=== PATIENT | female | born 1955 | race Caucasian/White ===

== ENCOUNTER → 2020-02-19 | Outpatient (CLI) | payer OTHER | END | disposition home or self-care (01) | LOC: LABWHC1 07:28 | PROVIDERS: ATTEND Internal Medicine | DX: R05 Cough (principal); R50.9 Fever, unspecified ==

== ENCOUNTER 2020-09-19 10:35 | Observation (INO) | payer MEDICARE, OTHER ==
--- NOTE | 2020-09-19 11:12 | ED ---
Chest Pain HPI - General Chief Complaint: Chest Pain Stated Complaint: Chest Pain Time Seen by Provider: 09/19/20 10:35 Source: patient, EMS, RN notes reviewed Mode of arrival: EMS Limitations: no limitations - History of Present Illness Initial Comments: this is a 65-year-old female with a history of COPD and a prior history about 20 years ago. Cardiac cath showing no obstruction who presents with complaints of the onset of chest pain around 7:30 this morning. [place] dizzy and sweaty and nauseated. It was central pain dull pain pressure-like. Increase with deep breathing EMS was called she was given aspirin and 2 nitroglycerin with resolution of the pain. No complaints at this time. She was brought in from home. MD Complaint: chest pain - Related Data Home Medications Medication Instructions Recorded Confirmed Lisinopril-Hctz 10-12.5 mg 1 tab PO DAILY 09/19/20 09/19/20 [Zestoretic 10-12.5] Melatonin 3 mg PO HS 09/19/20 09/19/20 Allergies Allergy/AdvReac Type Severity Reaction Status Date / Time azithromycin Allergy Rash/Hives Verified 09/19/20 11:51 [From Zithromax Z-Benjie] meperidine [From Demerol] Allergy Rash/Hives Verified 09/19/20 11:51 morphine Allergy Hallucinati Verified 09/19/20 11:51 ons Penicillins Allergy Rash/Hives Verified 09/19/20 11:51 Review of Systems ROS Statement: Those systems with pertinent positive or pertinent negative responses have been documented in the HPI. ROS Other: All systems not noted in ROS Statement are negative. EKG Findings - EKG Results: EKG: interpreted by ARGELIA, sinus rhythm (Sinus rhythm was 95 SD interval 94, QRS 72 QT since QTC 312/[address]-T wave inferiorly and anterolaterally. No old ones for comparison) Past Medical History Past Medical History: COPD, Hypertension History of Any Multi-Drug Resistant Organisms: None Reported Past Surgical History: Section Past Psychological History: No Psychological Hx Reported Smoking Status: Current every day smoker Past Alcohol Use History: None Reported Past Drug Use History: None Reported General Exam - General Exam Comments Initial Comments: this is a well-developed asthenic appearing female who is awake alert oriented 3 Limitations: no limitations General appearance: alert, in no apparent distress Head exam: Present: atraumatic, normocephalic, normal inspection Eye exam: Present: normal appearance, PERRL, EOMI. Absent: scleral icterus, conjunctival injection, periorbital swelling ENT exam: Present: normal exam, mucous membranes moist Neck exam: Present: normal inspection, full ROM, other. Absent: tenderness, meningismus, lymphadenopathy Respiratory exam: Present: normal lung sounds bilaterally. Absent: respiratory distress, wheezes, rales, rhonchi, stridor, chest wall tenderness (no stridor to hear bruits) Cardiovascular Exam: Present: regular rate, normal rhythm, normal heart sounds. Absent: systolic murmur, diastolic murmur, rubs, gallop, clicks GI/Abdominal exam: Present: soft, normal bowel sounds. Absent: distended, tenderness, guarding, rebound, rigid Extremities exam: Present: normal inspection, full ROM, normal capillary refill. Absent: tenderness, pedal edema, joint swelling, calf tenderness Back exam: Present: normal inspection Neurological exam: Present: alert, oriented X3, CN II-XII intact Psychiatric exam: Present: normal affect, normal mood Skin exam: Present: warm, dry, intact, normal color. Absent: rash Course Vital Signs 09/19/20 09/19/20 10:37 12:18 Temperature 97.6 F Pulse Rate 94 94 Respiratory 22 20 Rate Blood Pressure 179/104 146/86 O2 Sat by Pulse 92 L 96 Oximetry Chest Pain MDM - MDM G reviewed evidence of COPD no other findings at this time. I did discuss findings with the patient family member the patient's from most part pain-free except when she takes a deep breath she did respond to nitro and aspirin earlier. She will be admitted for cardiology consultation. I did discuss the case with Dr. toledo Disposition Clinical Impression: Chest pain, Unstable angina pectoris Disposition: ADMITTED IP TO THIS HOSP Condition: Fair Referrals: Ana Knight MD [Primary Care Provider] - 1-2 days
[2020-09-19 11:14] LABS: Basophils # (A) 0.1 k/uL (0-0.2); Basophils % (A) 0 %; Eosinophils # (A) 0.2 k/uL (0-0.7); Eosinophils % (A) 1 %; HCT 42.8 % (34.0-46.0); Lymphocytes # (A) 1.4 k/uL (1.0-4.8); Lymphocytes % (A) 9 %; MCH 32.5 pg (25.0-35.0); MCHC 35.1 g/dL (31.0-37.0); MCV 92.6 fL (80.0-100.0); Mean Platelet Volume 7.1; Monocytes # (A) 0.4 k/uL (0-1.0); Monocytes % (A) 3 %; Neutrophils # (A) 12.8 k/uL (1.3-7.7); Neutrophils % (A) 86 %; Platelet Count 207 k/uL (150-450); RBC 4.63 m/uL (3.80-5.40); RDW 12.9 % (11.5-15.5); WBC 14.9 k/uL (3.8-10.6)
[2020-09-19 11:23] LABS: Prothrombin Time 10.3 sec (9.0-12.0)
[2020-09-19 11:31] LABS: ALT 23 U/L (4-34); AST 25 U/L (14-36); African American GFR (CKD) >90 (>60 ml/min/1.73 sqM); Albumin 4.4 g/dL (3.5-5.0); Alkaline Phosphatase 70 U/L (38-126); Anion Gap 9 mmol/L; Blood Urea Nitrogen 10 mg/dL (7-17); Calcium 9.5 mg/dL (8.4-10.2); Carbon Dioxide 25 mmol/L (22-30); Chloride 106 mmol/L (98-107); Creatine Kinase 46 U/L (30-135); Glucose 117 mg/dL (74-99); Magnesium 1.6 mg/dL (1.6-2.3); Non-African American GFR(CKD) 85 (>60 ml/min/1.73 sqM); Sodium 140 mmol/L (137-145); Total Bilirubin 0.6 mg/dL (0.2-1.3); Total Protein 8.2 g/dL (6.3-8.2)
--- NOTE | 2020-09-19 11:48 | XR ---
EXAMINATION TYPE: XR chest 2V DATE OF EXAM: 09/19/2020 COMPARISON: 09/14/2018 HISTORY: Shortness of breath TECHNIQUE: Frontal and lateral views of the chest are obtained. FINDINGS: Scattered senescent parenchymal changes noted. Hyperinflation compatible with COPD. No evidence for infiltrate. No evidence for atelectasis. Heart size is stable. Mediastinal structures are stable and grossly unremarkable. No evidence for hilar prominence. Degenerative changes dorsal spine. IMPRESSION: 1. No evidence for acute pulmonary disease.
[2020-09-19] MEDS ORDERED: HEPARIN SODIUM,PORCINE 5,000 UNIT/ML 1 ML VIAL IV ONE (13:00)
[2020-09-19] MEDS ORDERED: NITROGLYCERIN SL TABS 0.4 MG TAB SUBLINGUAL PRN (13:00)
[2020-09-19] MEDS ORDERED: NITROGLYCERIN OINT 1 INCH/GM PACKET TOPICAL STA (13:02)
[2020-09-19] MEDS: HEPARIN SOD,PORK IN 0.45% NACL 25,000 UNIT in 0.45% NACL 1 250ML.BAG IV SCH (13:20)
[2020-09-19] MEDS: SODIUM CHLORIDE 0.9% 1,000 ML IV SCH (13:23)
--- NOTE | 2020-09-19 15:15 | P.HPIM ---
History of Present Illness This is a pleasant 65 years old female with past medical history of COPD and hypertension. She is a patient of Dr. Knight. Presents because of chest pain. Patient states that she woke up this morning with chest pain which is 7-8/10 in severity that like heaviness, and the mid to lower chest, sometimes radiating to the next with no dyspnea but associated with dyspnea sweating and nausea. Currently her chest pain is rated at 3-4/10 and increase especially with deep breathing. She smokes about 1 pack per day, no alcohol or illicit drugs. Patient is counseled and she agrees to quit. She was nicotine patch Vital signs stable. unremarkable cbc, inr, bmp, liver enzymes except limited once complete 14 K In the emergency room patient was started on aspirin, heparin drip and normal saline at 100 mL per hour EKG showing normal sinus rhythm at [address] depression in V3 to V4 and T-wave inversion in the inferior leads Review of Systems CONSTITUTIONAL: No fever, no malaise, no fatigue. HEENT: No recent visual problems or hearing problems. Denied any sore throat. CARDIOVASCULAR: No orthopnea, PND, no palpitations, no syncope. PULMONARY: No shortness of breath, no cough, no hemoptysis. GASTROINTESTINAL: No diarrhea, no nausea, no vomiting, no abdominal pain. Normoactive bowel sounds. NEUROLOGICAL: No headaches, no weakness, no numbness. HEMATOLOGICAL: Denies any bleeding or petechiae. GENITOURINARY: Denies any burning micturition, frequency, or urgency. MUSCULOSKELETAL/RHEUMATOLOGICAL: Denies any joint pain, swelling, or any muscle pain. ENDOCRINE: Denies any polyuria or polydipsia. Past Medical History Past Medical History: COPD, Hypertension History of Any Multi-Drug Resistant Organisms: None Reported Past Surgical History: Section Past Psychological History: No Psychological Hx Reported Smoking Status: Current every day smoker Past Alcohol Use History: None Reported Past Drug Use History: None Reported Medications and Allergies Home Medications Medication Instructions Recorded Confirmed Type Lisinopril-Hctz 10-12.5 mg 1 tab PO DAILY 09/19/20 09/19/20 History [Zestoretic 10-12.5] Melatonin 3 mg PO HS 09/19/20 09/19/20 History Allergies Allergy/AdvReac Type Severity Reaction Status Date / Time azithromycin Allergy Rash/Hives Verified 09/19/20 11:51 [From Zithromax Z-Benjie] meperidine [From Demerol] Allergy Rash/Hives Verified 09/19/20 11:51 morphine Allergy Hallucinati Verified 09/19/20 11:51 ons Penicillins Allergy Rash/Hives Verified 09/19/20 11:51 Physical Exam Vitals: Vital Signs Temp Pulse Resp BP Pulse Ox 09/19/20 13:57 86 20 154/92 97 09/19/20 13:20 82 18 154/94 98 09/19/20 12:18 94 20 146/86 96 09/19/20 10:37 97.6 F 94 22 179/104 92 L Intake and Output 09/18/20 09/19/20 09/19/20 22:59 06:59 14:59 Other: Weight 45.813 kg GENERAL: The patient is alert and oriented x3, not in any acute distress. Well developed, well nourished. HEENT: Pupils are round and equally reacting to light. EOMI. No scleral icterus. No conjunctival pallor. Normocephalic, atraumatic. No pharyngeal erythema. No thyromegaly. CARDIOVASCULAR: S1 and S2 present. No murmurs, rubs, or gallops. PULMONARY: Chest is clear to auscultation, no wheezing or crackles. ABDOMEN: Soft, nontender, nondistended, normoactive bowel sounds. No palpable organomegaly. MUSCULOSKELETAL: No joint swelling or deformity. EXTREMITIES: No cyanosis, clubbing, or pedal edema. NEUROLOGICAL: Gross neurological examination did not reveal any focal deficits. SKIN: No rashes. No petechiae Results CBC & Chem 7: 09/19/20 11:01 09/19/20 11:01 Labs: Abnormal Lab Results - Last 24 Hours (Table) 09/19/20 09/19/20 Range/Units 11: 11:01 WBC 14.9 H (3.8-10.6) k/uL Neutrophils # 12.8 H (1.3-7.7) k/uL Glucose 117 H (74-99) mg/dL Assessment and Plan Assessment: Chest pain, Concerning for unstable angina Hypertension COPD not in acute exacerbation Nicotine dependence Plan: This is a pleasant 65 years old female who presents with chest pain. Concerning for unstable angina We'll do serial troponin, cardiology consult. Echocardiogram and continue with aspirin and heparin drip Labs and medication were reviewed.. Continue same treatment. Continue with symptomatic treatment. Resume home medication. Monitor lytes and vitals. DVT and GI prophylaxis. Further recommendations depends on the clinical course of the patient DVT prophylaxis: heparin GI Prophylaxis: Pepcid Prognosis is guarded Discussed with the bedside nurse in the emergency room From the Fisheries Enforcement Officer
[2020-09-19] MEDS: NITROGLYCERIN OINT 1 INCH/GM PACKET TOPICAL SCH (18:26)
[2020-09-19 19:55] LABS: Glucose,Whole Blood 132 mg/dL (75-99)
[2020-09-19] MEDS: MELATONIN 3 MG TABLET PO SCH (20:14)
[2020-09-19] MEDS: FAMOTIDINE 20 MG/2 ML VIAL IV SCH (20:14)
[2020-09-19] MEDS: NICOTINE 21MG/24HR PATCH TRANSDERM SCH (20:14)
[2020-09-19] MEDS: HEPARIN SODIUM,PORCINE 5,000 UNIT/ML 1 ML VIAL IV PRN (22:16)
[2020-09-20] MEDS: SODIUM CHLORIDE 0.9% 1,000 ML IV SCH ×3 (00:52→20:42)
[2020-09-20] MEDS: NITROGLYCERIN OINT 1 INCH/GM PACKET TOPICAL SCH ×2 (00:52→05:48)
[2020-09-20] MEDS ORDERED: ASPIRIN 325 MG TAB PO SCH (09:00)
[2020-09-20] MEDS ORDERED: ACETAMINOPHEN TAB 325 MG TAB PO PRN (09:15)
--- NOTE | 2020-09-20 09:17 | P.CRDCN ---
History of Present Illness Consult date: 09/20/20 Consult reason: chest pain History of present illness: History of present illness: This is a 65-year-old female with past medical history of COPD, hypertension. Patient woke up yesterday morning with chest pain that was rated a #7 or 8 out of 10, heaviness on the left side of her chest that did go into her neck. She also had some cold sweats and nausea. She states the pain lasted all day but has not at the time of evaluation. She was given Nitropaste in the emergency center which she said did not improve her pain but only caused a headache. She has had a heart catheterization done 26 years ago and at that time was told that she had small arteries. 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 She is an active smoker of one pack per day since she was 15 years of age. No marijuana, illicit drug use or alcohol use. EKG was a sinus rhythm with ST depression in V3, V4 and T-wave inversion in the inferior leads. WBC 14.9, hemoglobin 15. Electrolytes and renal function normal with a creatinine of 0.74. Liver function tests normal. Troponin negative on 3 draws. Coronavirus PCR not detected. Chest x-ray shows no acute pulmonary disease. Patient was started on heparin drip and Nitropaste. Review Of Systems: Constitutional: No fever, no chills. No weakness, fatigue or lethargy. EENT: No headache. No dizziness. Lungs: No shortness of breath, cough, no sputum production. No wheezing. Cardiovascular: No chest pain, no lower extremity edema. No palpitations. No paroxysmal nocturnal dyspnea. No orthopnea. No lightheadedness or dizziness. No syncopal episodes. Abdominal: No abdominal pain. No nausea, vomiting. No diarrhea. No constipation. No bloody or tarry stools.. No loss of appetite. Genitourinary: No dysuria.. No urinary retention. Musculoskeletal: No myalgias. No muscle weakness, no gait dysfunction, no frequent falls. No back pain. No neck pain. Integumentary: No wounds, no lesions. No rash or pruritus. No unusual bruising. Neurologic: No aphasia. No facial droop. No change in mentation. No head injury. No headache. No paralysis. No paresthesia. Psychiatric: No depression. No anxiety. Endocrine: No abnormal blood sugars. Physical examination: Gen: This is a 65-year-old thin cachectic appearing female patient. Patient's resting in bed and appears to be in no acute distress. VS: Patient is afebrile, heart rate 84, blood pressure 157/81, pulse ox 94% on r oom air. HEENT: Head is atraumatic, normocephalic. Pupils equal, round. Sclerae is anicteric. NECK: Supple. No JVD. No lymphadenopathy. No thyromegaly. No carotid bruit LUNGS: Clear to auscultation. No wheezes or rhonchi. No intercostal retractions. HEART: Regular rate and rhythm. No murmur. No chest wall tenderness. ABDOMEN: Soft. Bowel sounds are present. No masses. No tenderness. EXTREMITIES: No pedal edema. No calf tenderness. Dorsalis pedis +2 bilaterally. NEUROLOGICAL: Patient is awake, alert and oriented x3. Cranial nerves 2 through 12 are grossly intact. Assessment: Unstable angina rule out coronary artery disease Hypertension COPD Tobacco use and dependence Plan: Patient continued on lisinopril/hydrochlorothiazide 10/12.5 mg daily Continue aspirin which we will change to 81 mg daily Obtain 2-D echocardiogram and Doppler study to assess cardiac structure and function Patient will be scheduled for cardiac catheterization on Tuesday with Dr. Mas. Further recommendations to follow based upon clinical course Thank you kindly for this consultation. Nurse practitioner note has been reviewed, I agree with documented findings and plan of care. Patient was seen and examined. Past Medical History Past Medical History: COPD, Hypertension History of Any Multi-Drug Resistant Organisms: None Reported Past Surgical History: Section Past Psychological History: No Psychological Hx Reported Smoking Status: Current every day smoker Past Alcohol Use History: None Reported Past Drug Use History: None Reported Medications and Allergies Home Medications Medication Instructions Recorded Confirmed Type Lisinopril-Hctz 10-12.5 mg 1 tab PO DAILY 09/19/20 09/19/20 History [Zestoretic 10-12.5] Melatonin 3 mg PO HS 09/19/20 09/19/20 History Allergies Allergy/AdvReac Type Severity Reaction Status Date / Time azithromycin Allergy Rash/Hives Verified 09/19/20 11:51 [From Zithromax Z-Benjie] meperidine [From Demerol] Allergy Rash/Hives Verified 09/19/20 11:51 morphine Allergy Hallucinati Verified 09/19/20 11:51 ons Penicillins Allergy Rash/Hives Verified 09/19/20 11:51 Physical Exam Vitals: Vital Signs Temp Pulse Pulse Resp BP BP Pulse Ox 09/20/20 07:00 98.0 F 84 18 157/81 94 L 09/20/20 02:00 98.0 F 18 L 18 157/74 93 L 09/19/20 20:14 18 09/19/20 19:32 98.3 F 95 17 156/74 96 09/19/20 17:49 96 18 09/19/20 15:52 99.0 F 96 18 164/99 92 L 09/19/20 15:09 98.3 F 95 18 167/87 97 09/19/20 13:57 86 20 154/92 97 09/19/20 13:20 82 18 154/94 98 09/19/20 12:18 94 20 146/86 96 09/19/20 10:37 97.6 F 94 22 179/104 92 L Intake and Output 09/19/20 09/20/20 09/20/20 22:59 06:59 14:59 Intake Total 48.932 Balance 48.932 Intake: Intake, IV Titration 48.932 Amount Heparin Sod,Pork in 0.45% 48.932 NaCl 25,000 unit In 0.45 % NaCl 1 250ml.bag @ 12 UNITS/KG/HR 5.498 mls/hr IV .Q24H [facility] Rx#: [id number] Other: Voiding Method Toilet Toilet # Voids 1 2 # Bowel Movements 0 Weight 45.813 kg Results 09/19/20 11:01 09/19/20 11:01 Cardiac Enzymes 09/19/20 09/19/20 09/19/20 Range/Units 11:01 11:01 14:01 AST 25 (14-36) U/L Troponin I <0.012 <0.012 (0.000-0.034) ng/mL 09/19/20 Range/Units 17:16 AST (14-36) U/L Troponin I <0.012 (0.000-0.034) ng/mL Coagulation 09/19/20 09/19/20 09/20/20 Range/Units 11:01 19:55 04:52 PT 10.3 (9.0-12.0) sec APTT 24.0 36.5 H 51.2 H (22.0-30.0) sec CBC 09/19/20 Range/Units 11:01 WBC 14.9 H (3.8-10.6) k/uL RBC 4.63 (3.80-5.40) m/uL Hgb 15.0 (11.4-16.0) gm/dL Hct 42.8 (34.0-46.0) % Plt Count 207 (150-450) k/uL Comprehensive Metabolic Panel 09/19/20 Range/Units 11:01 Sodium 140 (137-145) mmol/L Potassium 4.0 (3.5-5.1) mmol/L Chloride 106 (98-107) mmol/L Carbon Dioxide 25 (22-30) mmol/L BUN 10 (7-17) mg/dL Creatinine 0.74 (0.52-1.04) mg/dL Glucose 117 H (74-99) mg/dL Calcium 9.5 (8.4-10.2) mg/dL AST 25 (14-36) U/L ALT 23 (4-34) U/L Alkaline Phosphatase 70 (38-126) U/L Total Protein 8.2 (6.3-8.2) g/dL Albumin 4.4 (3.5-5.0) g/dL Current Medications Generic Name Dose Route Start Last Admin Trade Name Freq PRN Reason Stop Dose Admin Aspirin 325 mg 09/20/20 09:00 Aspirin 325 Mg Tab PO DAILY [facility] Famotidine 20 mg 09/19/20 21:00 09/19/20 20:14 Famotidine 20 Mg/2 Ml Vial IV 20 mg Q12HR NICHOLAS Administration Lisinopril/HCTZ 1 each 09/20/20 09:00 Lisinopril-Hctz 10-12.5 Mg 1 Each Tab PO DAILY [facility] Heparin Sodium (Porcine) 0 unit 09/19/20 22:07 09/19/20 22:16 Heparin Sodium,Porcine 5,000 Unit/Ml 1 Ml Vial IV 1,145 unit PER PROTOCOL PRN Administration Low PTT Protocol Sodium Chloride 1,000 mls @ 100 mls/hr 09/19/20 13:00 09/20/20 00:52 Saline 0.9% IV Not Given .Q10H NICHOLAS Heparin Sodium/Sodium Chloride 250 mls @ 5.498 mls/hr 09/19/20 13:00 09/19/20 22:14 25,000 unit/ Sodium Chloride IV 14 units/kg/hr .Q24H NICHOLAS 6.414 mls/hr Titration Protocol 12 UNITS/KG/HR Melatonin 3 mg 09/19/20 21:00 09/19/20 20:14 Melatonin 3 Mg Tablet PO 3 mg HS NICHOLAS Administration Nicotine 1 patch 09/19/20 15:15 09/19/20 20:14 Nicotine 21mg/24hr Patch TRANSDERM 1 patch DAILY NICHOLAS Administration Nitroglycerin 0.4 mg 09/19/20 13:00 Nitroglycerin Sl Tabs 0.4 Mg Tab SUBLINGUAL Q5M PRN Chest Pain Nitroglycerin 1 inch 09/19/20 18:00 09/20/20 05:48 Nitroglycerin Oint 1 Inch/Gm Packet TOPICAL Not Given Q6HR NICHOLAS Intake and Output 09/19/20 09/20/20 09/20/20 22:59 06:59 14:59 Intake Total 48.932 Balance 48.932 Intake: Intake, IV Titration 48.932 Amount Heparin Sod,Pork in 0.45% 48.932 NaCl 25,000 unit In 0.45 % NaCl 1 250ml.bag @ 12 UNITS/KG/HR 5.498 mls/hr IV .Q24H [facility] Rx#: [id number] Other: Voiding Method Toilet Toilet # Voids 1 2 # Bowel Movements 0 Weight 45.813 kg 09/19/20 11:01 09/19/20 11:01
[2020-09-20] MEDS: FAMOTIDINE 20 MG/2 ML VIAL IV SCH (09:35)
[2020-09-20] MEDS: NICOTINE 21MG/24HR PATCH TRANSDERM SCH (09:36)
[2020-09-20] MEDS: LISINOPRIL-HCTZ 10-12.5 MG 1 EACH TAB PO SCH (09:36)
[2020-09-20] MEDS ORDERED: SODIUM CHLORIDE 0.9% 1,000 ML in EMPTY BAG 1 BAG IV ONE (10:34)
[2020-09-20] MEDS ORDERED: NITROGLYCERIN SL TABS 0.4 MG TAB SUBLINGUAL PRN (10:34)
[2020-09-20] MEDS ORDERED: ALPRAZolam 0.25 MG TAB PO PRN (10:34)
[2020-09-20] MEDS ORDERED: ALPRAZolam 0.5 MG TAB PO PRN (10:34)
[2020-09-20 11:40] VITALS: BMI 17.9
[2020-09-20 12:07] LABS: Chol/HDL Ratio 3.26; LDL Cholesterol,Calculated 93.8 mg/dL (0.0-131.0); VLDL Calculation 12.2 mg/dL (5.00-40.00)
--- NOTE | 2020-09-20 12:51 | ECHOF ---
Referral Reason:LVF MEASUREMENTS -------- HEIGHT: 160.0 cm WEIGHT: 45.8 kg BP: 157/81 RVIDd: 2.3 cm (< 3.3) IVSd: 1.1 cm (0.6 - 1.1) LVIDd: 3.3 cm (3.9 - 5.3) LVPWd: 1.1 cm (0.6 - 1.1) IVSs: 1.4 cm LVIDs: 2.1 cm LVPWs: 1.3 cm LA Diam: 2.3 cm (2.7 - 3.8) Ao Diam: 2.7 cm (2.0 - 3.7) AV Cusp: 1.8 cm (1.5 - 2.6) MV EXCURSION: 12.885 mm (> 18.000) MV EF SLOPE: 44 mm/s (70 - 150) EPSS: 0.5 cm MV E Matt: 1.03 m/s MV DecT: 230 ms MV A Matt: 0.85 m/s MV E/A Ratio: 1.22 RAP: 5.00 mmHg RVSP: 30.70 mmHg FINDINGS -------- Sinus rhythm. This was a technically adequate study. The left ventricular size is normal. There is borderline concentric left ventricular hypertrophy. Overall left ventricular systolic function is normal with, an EF between 60 - 65 %. The right ventricle is normal in size. The left atrium is normal in size. The right atrium is normal in size. Interatrial and interventricular septum intact. The aortic valve is trileaflet and appears structurally normal. The mitral valve is normal. There is trace mitral regurgitation. Mild tricuspid regurgitation present. Right ventricular systolic pressure is normal at < 35 mmHg. The aortic root size is normal. Normal inferior vena cava with normal inspiratory collapse consistent with estimated right atrial pre ssure of 5 mmHg. There is no pericardial effusion. CONCLUSIONS -------- 1. The left ventricular size is normal. 2. There is borderline concentric left ventricular hypertrophy. 3. Overall left ventricular systolic function is normal with, an EF between 60 - 65 %. 4. The mitral valve is normal. 5. There is trace mitral regurgitation. 6. Mild tricuspid regurgitation present. 7. There is no pericardial effusion. JOURNEYMAN PATTERNMAKER: Juliana Gillette RDCS
[2020-09-20] MEDS ORDERED: TEMAZEPAM 15 MG CAP PO PRN (15:00)
[2020-09-20] MEDS ORDERED: ALBUTEROL NEBULIZED 2.5 MG/3 ML INHALATION PRN (15:02)
[2020-09-20] MEDS: amLODIPine 5 MG TAB PO SCH (16:59)
--- NOTE | 2020-09-20 16:59 | PN ---
PROGRESS NOTE DATE OF SERVICE: 09/20/2020. INTERVAL HISTORY: This is a 65-year-old woman who was admitted with chest pain which was constricting type and pressure-type. Was evaluated by Cardiology. Cardiology planning a cardiac catheterization on Tuesday, but a 2D echo with Doppler showed ejection fraction 60-65% and minimal mitral regurgitation and tricuspid regurgitation. No chest pain. No palpitations. No fever at this time. PHYSICAL EXAMINATION: GENERAL: Patient is alert and oriented times three. VITAL SIGNS: Pulse 84, blood pressure 157/82, respirations 18, temperature 98, pulse ox 94% on room air. HEENT: Conjunctivae normal. Oral mucosa moist. NECK: No jugular venous distention. No carotid bruits. No lymph node enlargement. RESPIRATORY: Breath sounds diminished at the bases. No rhonchi, no crackles. HEART: S1 and S2, muffled. ABDOMEN: Soft, no tenderness. No masses palpable. EXTREMITIES: No edema, no swelling. NERVOUS: No focal deficits. LABS: WBC 14.9. UA noted. COVID-19 is negative. ASSESSMENT: 1. Chest pain, possible unstable angina. 2. Increased WBC. 3. Chronic obstructive pulmonary disease history. 4. Hypertension. 5. History of section. 6. History of nicotine dependence, continued ongoing. RECOMMENDATIONS AND DISCUSSION: In this 65-year-old woman who presented with multiple complex medical issues, we will monitor the patient closely. Continue the current medications and continue symptomatic treatment. Otherwise we will add Norvasc to the current regimen. Otherwise, continue the rest of the medications. Resume the home medications. Continue IV heparin. Guarded prognosis. Further recommendations to follow. MMODL / IJN: [id number] /
[2020-09-20] MEDS: MELATONIN 3 MG TABLET PO SCH (20:42)
[2020-09-20] MEDS: FAMOTIDINE 20 MG TAB PO SCH (20:42)
[2020-09-21] MEDS: HEPARIN SOD,PORK IN 0.45% NACL 25,000 UNIT in 0.45% NACL 1 250ML.BAG IV SCH ×2 (05:10→15:13)
[2020-09-21] MEDS: SODIUM CHLORIDE 0.9% 1,000 ML IV SCH ×2 (06:21→20:09)
--- NOTE | 2020-09-21 08:48 | P.PN ---
Subjective Progress Note Date: 09/21/20 History of present illness: This is a 65-year-old female with past medical history of COPD, hype rtension. Patient woke up yesterday morning with chest pain that was rated a #7 or 8 out of 10, heaviness on the left side of her chest that did go into her neck. She also had some cold sweats and nausea. She states the pain lasted all day but has not at the time of evaluation. She was given Nitropaste in the emergency center which she said did not improve her pain but only caused a headache. She has had a heart catheterization done 26 years ago and at that time was told that she had small arteries. She does not currently follow with the pension adviser. She is an active smoker of one pack per day since she was 15 years of age. No marijuana, illicit drug use or alcohol use. EKG was a sinus rhythm with ST depression in V3, V4 and T-wave inversion in the inferior leads. WBC 14.9, hemoglobin 15. Electrolytes and renal function normal with a creatinine of 0.74. Liver function tests normal. Troponin negative on 3 draws. Coronavirus PCR not detected. Chest x-ray shows no acute pulmonary disease. Patient was started on heparin drip and Nitropaste. 09/21: Echocardiogram reveals EF of 60-65%, trace mitral regurgitation, mild tricuspid regurgitation. Patient denies having any chest pain or shortness of breath. No lightheadedness or dizziness. She states she occasionally feels a flutter in her chest with activity. monitor technician has been a sinus rhythm. Patient is scheduled for heart catheterization tomorrow morning. She is continued on heparin drip. Patient noted to have some elevated blood pressure readings for which attending added amlodipine 5 mg daily. Physical examination: Gen: This is a 65-year-old thin cachectic appearing female patient. Patient's resting in bed and appears to be in no acute distress. VS: Patient is afebrile, heart rate 84, blood pressure 151/87, pulse ox 95% on room air. HEENT: Head is atraumatic, normocephalic. Pupils equal, round. Sclerae is anicteric. NECK: Supple. No JVD. LUNGS: Clear to auscultation. No wheezes or rhonchi. No intercostal retractions. HEART: Regular rate and rhythm. No murmur. No chest wall tenderness. ABDOMEN: Soft. Bowel sounds are present. No masses. No tenderness. EXTREMITIES: No pedal edema. No calf tenderness. Dorsalis pedis +2 bilaterally. NEUROLOGICAL: Patient is awake, alert and oriented x3. Cranial nerves 2 through 12 are grossly intact. Assessment: Unstable angina rule out coronary artery disease Hypertension COPD Tobacco use and dependence Plan: Continued on lisinopril/hydrochlorothiazide 10/12.5 mg daily, amlodipine increased to 10 mg at 3 PM Continue aspirin 81 mg daily, atorvastatin 40 mg daily, heparin drip Patient scheduled for cardiac catheterization on Tuesday with Dr. Mas. Further recommendations to follow based upon clinical course Thank you kindly for this consultation. Nurse practitioner note has been reviewed, I agree with documented findings and plan of care. Patient was seen and examined. Objective - Vital Signs Vital signs: Vital Signs Temp 97.9 F 09/21/20 07:00 Pulse 81 09/21/20 07:00 Resp 18 09/21/20 07:00 BP 151/87 09/21/20 07:00 Pulse Ox 95 09/21/20 07:00 Intake & Output 09/20/20 09/21/20 09/21/20 18:59 06:59 18:59 Intake Total 1556 198.406 14.752 Balance 1556 198.406 14.752 Weight 45.813 kg Intake: Intake, IV Titration 700 198.406 14.752 Amount Heparin Sod,Pork in 0.45% 198.406 14.752 NaCl 25,000 unit In 0.45 % NaCl 1 250ml.bag @ 12 UNITS/KG/HR 5.498 mls/hr IV .Q24H NICHOLAS Rx#: [id number] Sodium Chloride 0.9% 1, 700 000 ml @ 100 mls/hr IV . Q10H NICHOLAS Rx#:[id number] Oral 856 Other: Voiding Method Toilet Toilet # Voids 3 2 - Labs CBC & Chem 7: 09/21/20 06:12 09/21/20 06:12 Labs: Abnormal Lab Results - Last 24 Hours (Table) 09/21/20 Range/Units 06:12 APTT 30.6 H (22.0-30.0) sec
[2020-09-21] MEDS: ASPIRIN 81 MG PO SCH (08:55)
[2020-09-21] MEDS: FAMOTIDINE 20 MG TAB PO SCH ×2 (08:55→20:19)
[2020-09-21] MEDS: NICOTINE 21MG/24HR PATCH TRANSDERM SCH (08:55)
[2020-09-21] MEDS: ATORVASTATIN 40 MG TAB PO SCH (08:55)
[2020-09-21] MEDS: amLODIPine 5 MG TAB PO SCH (08:55)
[2020-09-21] MEDS: LISINOPRIL-HCTZ 10-12.5 MG 1 EACH TAB PO SCH (08:56)
[2020-09-21 10:04] LABS: Basophils # (A) 0.05 X 10*3/uL (0.00-0.10); Basophils % (A) 0.6 %; Eosinophils # (A) 0.15 X 10*3/uL (0.04-0.35); Eosinophils % (A) 1.7 %; HCT 38.8 % (37.2-46.3); HGB 13.3 g/dL (12.0-15.0); Lymphocytes # (A) 2.28 X 10*3/uL (0.90-5.00); Lymphocytes % (A) 25.7 %; MCH 32.2 pg (27.0-32.0); MCHC 34.3 g/dL (32.0-37.0); MCV 93.9 fL (80.0-97.0); Mean Platelet Volume 10.4 fL (9.5-12.2); Monocytes # (A) 0.66 X 10*3/uL (0.20-1.00); Monocytes % (A) 7.4 %; Neutrophils % (A) 64.3 %; Platelet Count 171 X 10*3/uL (140-440); RBC 4.13 X 10*6/uL (4.10-5.20); RDW 12.6 % (11.5-14.5); WBC 8.87 X 10*3/uL (4.50-10.00)
[2020-09-21 10:08] LABS: African American GFR (CKD) 77.2 (60.0-200.0); Anion Gap 4.5 mmol/L (4.00-12.00); Calcium 9.2 mg/dL (8.7-10.3); Carbon Dioxide 28.5 mmol/L (21.6-31.8); Non-African American GFR(CKD) 66.6 (60.0-200.0); Potassium 3.6 mmol/L (3.5-5.5)
[2020-09-21] MEDS: amLODIPine 10 MG TAB PO SCH (11:49)
--- NOTE | 2020-09-21 16:53 | PN ---
PROGRESS NOTE DATE OF SERVICE: 09/21/2020 This 65-year-old woman who was admitted with chest pain is being closely monitored. Cardiology planning a cardiac cath tomorrow. No chest pain. No palpitations. No fever. The patient is on IV heparin. PHYSICAL EXAMINATION: Alert and oriented times three. Pulse 81. Blood pressure 151/87, respiration 18, temperature 97.2, pulse ox 94% on room air. HEENT: Conjunctivae normal. NECK: No JVD. CARDIOVASCULAR: S1, S2 muffled. RESPIRATORY SYSTEM: Breath sounds diminished at the bases. No rhonchi. No crackles. ABDOMEN: Soft, nontender. NERVOUS SYSTEM: No focal deficits. LABS: WBC 8.87, hemoglobin 13.3. Otherwise, lipid panel is normal. Glucose 132. ASSESSMENT: 1. Chest pain, possible unstable angina. 2. Increased WBC, improved, possibly reactive. 3. Chronic obstructive pulmonary disease history. 4. Hypertension. 5. History of section. 6. History of nicotine dependence, continued ongoing. RECOMMENDATIONS AND DISCUSSION: Continue current medications, management and symptomatic treatment. Rule out myocardial infarction. Continue with IV heparin. Cardiac cath with Cardiology. Guarded prognosis because of multiple complex medical issues. Further recommendations to follow. MMODL / IJN: [id number] /
[2020-09-21] MEDS: MELATONIN 3 MG TABLET PO SCH (20:19)
[2020-09-21] MEDS: HEPARIN SODIUM,PORCINE 5,000 UNIT/ML 1 ML VIAL IV PRN (20:19)
[2020-09-22 02:34] LABS: Basophils # (A) 0.1 k/uL (0-0.2); Basophils % (A) 1 %; Eosinophils # (A) 0.4 k/uL (0-0.7); Eosinophils % (A) 5 %; HGB 13.3 gm/dL (11.4-16.0); Lymphocytes # (A) 2.3 k/uL (1.0-4.8); Lymphocytes % (A) 30 %; MCH 32.1 pg (25.0-35.0); MCHC 34.2 g/dL (31.0-37.0); MCV 93.8 fL (80.0-100.0); Mean Platelet Volume 7.4; Monocytes # (A) 0.4 k/uL (0-1.0); Monocytes % (A) 6 %; Neutrophils # (A) 4.4 k/uL (1.3-7.7); Neutrophils % (A) 57 %; Platelet Count 179 k/uL (150-450); RBC 4.15 m/uL (3.80-5.40); RDW 13.4 % (11.5-15.5); WBC 7.7 k/uL (3.8-10.6)
[2020-09-22 02:40] LABS: African American GFR (CKD) >90 (>60 ml/min/1.73 sqM); Anion Gap 4 mmol/L; Blood Urea Nitrogen 15 mg/dL (7-17); Calcium 9.6 mg/dL (8.4-10.2); Carbon Dioxide 28 mmol/L (22-30); Chloride 106 mmol/L (98-107); Glucose 116 mg/dL (74-99); Non-African American GFR(CKD) >90 (>60 ml/min/1.73 sqM); Sodium 138 mmol/L (137-145)
[2020-09-22 02:47] LABS: Potassium 3.5 mmol/L (3.5-5.1)
[2020-09-22] MEDS: SODIUM CHLORIDE 0.9% 1,000 ML IV SCH ×2 (04:10→13:10)
[2020-09-22] MEDS ORDERED: ATORVASTATIN 80 MG TAB PO ONE (06:00)
[2020-09-22] MEDS ORDERED: ASPIRIN 325 MG TAB PO ONE (06:00)
[2020-09-22] MEDS ORDERED: HEPARIN SODIUM,PORCINE 10,000 UNIT in SODIUM CHLORIDE 0.9% 1,000 ML IRRIGATION PRN (07:00)
[2020-09-22] MEDS ORDERED: HEPARIN SODIUM,PORCINE 2,500 UNIT in SODIUM CHLORIDE 0.9% 250 ML IRRIGATION PRN (07:00)
[2020-09-22] MEDS ORDERED: LIDOCAINE 1% INJ 10MG/ML (20 ML MDV) ONE (07:21)
[2020-09-22] MEDS ORDERED: fentaNYL (PF) 50 MCG/ML 2 ML AMP ONE (07:38)
[2020-09-22] MEDS: fentaNYL (PF) 50 MCG/ML 2 ML AMP IV ONE ×2 (07:41→07:44)
[2020-09-22] MEDS ORDERED: LIDOCAINE 1% INJ 10MG/ML (20 ML MDV) SQ ONE (07:41)
[2020-09-22] MEDS ORDERED: MIDAZOLAM 2 MG/2 ML VIAL IV ONE (07:42)
[2020-09-22] MEDS ORDERED: IOPAMIDOL-370 125ML BTL INJ ONE (07:49)
[2020-09-22] MEDS ORDERED: IV FLUID CONTINUATION 500 ML IV ONE (07:50)
[2020-09-22] MEDS ORDERED: RX INFO: IV CONTRAST WAS GIVEN 1 EACH MISC MISCELLANE PRN (07:57)
[2020-09-22] MEDS ORDERED: SODIUM CHLORIDE 0.9% 1,000 ML IV SCH (08:00)
--- NOTE | 2020-09-22 08:22 | CC ---
CARDIAC CATHETERIZATION REPORT INDICATION: Unstable angina. PROCEDURE NOTE: After obtaining informed consent, left heart catheterization and coronary angiogram were performed via the right femoral artery using standard Deanna catheters. Patient tolerated the procedure well without any obvious immediate complications. A femoral angiogram was performed and decision was made for manual hemostasis. FINDINGS: 1. HEMODYNAMICS: Left ventricular end-diastolic pressure is 8 to 12 mm. There is no significant gradient across the aortic valve. 2. LEFT VENTRICULOGRAM: Left ventriculogram is not performed. 3. ANGIOGRAPHIC DATA: Left Main Coronary Artery: Left main coronary artery is a normal-sized vessel and is free of stenosis. Divides into left anterior descending coronary artery and circumflex coronary artery. LAD and its branches, circumflex coronary artery and its branches are free of significant stenosis. Right coronary artery is a dominant vessel and is free of significant disease. CONCLUSIONS: 1. Normal coronary arteries. 2. Normal left ventricular end-diastolic pressure. 3. Patient's chest discomfort is probably related to vasospasms. She is currently on amlodipine, which I am going to continue. I would also continue aspirin that she is on. MMODL / IJN: [id number] /
[2020-09-22] MEDS: ASPIRIN 81 MG PO SCH (09:32)
[2020-09-22] MEDS: ATORVASTATIN 40 MG TAB PO SCH (10:00)
[2020-09-22] MEDS: amLODIPine 10 MG TAB PO SCH (10:04)
[2020-09-22] MEDS: NICOTINE 21MG/24HR PATCH TRANSDERM SCH (10:04)
[2020-09-22] MEDS: LISINOPRIL-HCTZ 10-12.5 MG 1 EACH TAB PO SCH (10:04)
[2020-09-22] MEDS: FAMOTIDINE 20 MG TAB PO SCH (10:04)
[2020-09-22] MEDS ORDERED: PANTOPRAZOLE 40 MG/10 ML VIAL IVP ONE (11:00)
[2020-09-22 15:14] VITALS: BP 117/75; RESP 16; TEMP 98.2
[2020-09-22 18:14] VITALS: PULSE 79
--- NOTE | 2020-09-23 16:04 | P.DS ---
Providers Date of admission: 09/19/20 13:00 Expected date of discharge: 09/22/20 Attending physician: Yonas Jorgensen MD Consults: 09/19/20 13:00 Consult Physician Urgent Consulting Provider: Efraín Mas Consult Reason/Comments: chest pain, unstable angina Do you want consulting provider notified?: Yes Primary care physician: Ana Knight Hospital Course: Final diagnosis Chest pain, possible unstable angina Increased white blood count, improved, possibly reactive Chronic obstructive pulmonary disease history Hypertension history of section history of nicotine dependence, continued ongoing Discharge disposition Patient is being discharged in a stable condition with guarded prognosis to home. Patient will follow-up with Dr. Knight in the outpatient setting upon discharge. Patient is to follow-up with cardiology Dr. Mas outpatient in 2 weeks. Total time taken is greater than 35 minutes. Hospital course This is a 65-year-old female who was recently admitted with chest pain and was being closely monitored. Patient was evaluated by cardiology and underwent cardiac catheterization which was negative and chest pain most likely related to spasms. Medication adjustments have been made by cardiology and patient will continue with Norvasc along with aspirin in the outpatient setting. Patient instructed to follow-up with cardiology Dr. Mas in the outpatient setting in 2 weeks. Currently no reports of chest pain, shortness of breath, or palpitations. Patient is afebrile. No reports of nausea or vomiting and patient is tolerating diet. Patient will be discharged home today. On exam vital signs are stable. Cardio S1, S2 are muffled. Respiratory system shows diminished breath sounds at the bases with no wheezing or rhonchi noted. Abdomen is soft and nontender. Nervous system shows no focal deficits. Please refer to medication reconciliation sheet for a list of medications. Patient Condition at Discharge: Fair Plan - Discharge Summary Discharge Rx Participant: No New Discharge Prescriptions: New Aspirin 81 mg PO DAILY 30 Days #30 chew Nicotine 21Mg/24Hr Patch [Habitrol] 1 patch TRANSDERM DAILY #20 patch Atorvastatin [Lipitor] 40 mg PO DAILY 30 Days #30 tab Nitroglycerin Sl Tabs [Nitrostat] 0.4 mg SUBLINGUAL Q5M PRN #30 tab PRN Reason: Chest Pain amLODIPine [Norvasc] 10 mg PO DAILY 30 Days #30 tab Famotidine [Pepcid] 20 mg PO Q12HR 15 Days #30 tab Acetaminophen Tab [Tylenol] 650 mg PO Q6HR PRN tab PRN Reason: Fever And/ Or Pain Continue Lisinopril-Hctz 10-12.5 mg [Zestoretic 10-12.5] 1 tab PO DAILY Melatonin 3 mg PO HS Discharge Medication List Lisinopril-Hctz 10-12.5 mg [Zestoretic 10-12.5] 1 tab PO DAILY 09/19/20 [History] Melatonin 3 mg PO HS 09/19/20 [History] Acetaminophen Tab [Tylenol] 650 mg PO Q6HR PRN tab 09/22/20 [Rx] Aspirin 81 mg PO DAILY 30 Days #30 chew 09/22/20 [Rx] Atorvastatin [Lipitor] 40 mg PO DAILY 30 Days #30 tab 09/22/20 [Rx] Famotidine [Pepcid] 20 mg PO Q12HR 15 Days #30 tab 09/22/20 [Rx] Nicotine 21Mg/24Hr Patch [Habitrol] 1 patch TRANSDERM DAILY #20 patch 09/22/20 [Rx] Nitroglycerin Sl Tabs [Nitrostat] 0.4 mg SUBLINGUAL Q5M PRN #30 tab 09/22/20 [Rx] amLODIPine [Norvasc] 10 mg PO DAILY 30 Days #30 tab 09/22/20 [Rx] Follow up Appointment(s)/Referral(s): Ana Knight MD [Primary Care Provider] - 1-2 days Efraín Mas MD [STAFF PHYSICIAN] - 2 Weeks ([facility] will call patient to schedule follow up appointment.) Patient Instructions/Handouts: Left Heart Catheterization (DC), After Radial Heart Catheterization (GEN) Activity/Diet/Wound Care/Special Instructions: Activity Limited until follow-up Follow-up with primary care provider upon discharge Follow-up with cardiology outpatient Continue heart healthy diet Continue to avoid tobacco Discharge Disposition: HOME SELF-CARE
== END 2020-09-22 17:23 | disposition home or self-care (01) ==
LOC: EC 10:35 → 6NMEDSUR 13:00
PROVIDERS: ADMIT Internal Medicine; ATTEND Internal Medicine
DX: I20.0 Unstable angina (principal); J44.9 Chronic obstructive pulmonary disease, unspecified; I10 Essential (primary) hypertension; I08.1 Rheumatic disorders of both mitral and tricuspid valves; Z20.828 Contact with and (suspected) exposure to other viral communicable diseases; F17.210 Nicotine dependence, cigarettes, uncomplicated; Z98.891 History of uterine scar from previous surgery; Z79.899 Other long term (current) drug therapy; Z88.1 Allergy status to other antibiotic agents; Z88.5 Allergy status to narcotic agent; Z88.0 Allergy status to penicillin
CPT/HCPCS: 96376 ×3; 96366 ×3; 96375; 93005 ×2; 96365; 99285; 36415; 93306; 93458; 83880; 80061; 80053; 80048 ×2; 82550; 83735; 84484; 85025 ×3; 85610; 85730 ×4; 87635; 71046; G0378 ×4; C1769 ×2; C1894; S4990 ×3; J2250; J1644 ×4; J2001; J3010; Q9967